=== PATIENT | male | born 1995 | race American Indian/Alaskan Native ===

== ENCOUNTER 2018-12-21 17:54 | Emergency (ER) | payer SELFPAY ==
[2018-12-21] MEDS ORDERED: NACL 0.9% 1000 ML 1,000 ML IV ONE (18:54)
[2018-12-21 19:36] LABS: Basophils # (Auto) 0.1 K/mm3 (0.0-0.1); Basophils % (Auto) 0.7 % (0.0-1.8); Hematocrit 48.8 % (35.5-45.6); Hemoglobin 16.1 gm/dl (11.8-15.2); Lymphocytes # (Auto) 0.8 K/mm3 (1.2-5.4); Lymphocytes % (Auto) 8.9 % (13.4-35.0); Mean Corpuscular HGB Conc 33 % (32-34); Mean Corpuscular Volume 88 fl (84-94); Monocytes # (Auto) 0.3 K/mm3 (0.0-0.8); Monocytes % (Auto) 3.4 % (0.0-7.3); Platelet Count 226 K/mm3 (140-440); Red Blood Count 5.53 M/mm3 (3.65-5.03); Red Cell Distribution Width 14.1 % (13.2-15.2)
[2018-12-21 19:55] LABS: Alanine Aminotransferase 21 units/L (7-56); Albumin 5.5 g/dL (3.9-5); BUN/Creatinine Ratio 10; Blood Urea Nitrogen 12 mg/dL (9-20); Calcium 10.1 mg/dL (8.4-10.2); Hemolysis Index 19
--- NOTE | 2018-12-21 20:28 | Emergency Department Report ---
ED General Adult HPI - General Chief complaint: Abdominal Pain Stated complaint: NAUSEA Time Seen by Provider: 12/21/18 20:16 Source: patient Mode of arrival: Ambulatory Limitations: No Limitations - History of Present Illness Initial comments: 23-year-old male with no past medical history presents with a complaint of abdominal pain for the past 2 days. Patient states he was treated at an outside hospital on December 19 initially had improvement but worsened. Patient states he had no medications he was discharged with. Patient denies any sick contacts or any fever. Patient states his last emesis was at 4 PM. Patient states currently he is able to drink sips of water. Patient denies any hematemesis. Patient states his last bowel movement was also 4:30 PM but denies any hematochezia. Patient denies any cough or shortness of breath. Patient denies any dysuria or hematuria. Patient states the abdominal pain is diffuse but does not radiate. - Related Data Previous Rx's Medication Instructions Recorded Last Taken Type Famotidine [Pepcid] 20 mg PO BID #60 tablet 12/21/18 Unknown Rx Ondansetron (Nf) [Zofran TAB] 4 mg PO Q8HR PRN #20 tablet 12/21/18 Unknown Rx traMADol [Ultram] 50 mg PO Q6HR PRN #20 tablet 12/21/18 Unknown Rx Allergies Allergy/AdvReac Type Severity Reaction Status Date / Time No Known Allergies Allergy Unverified 12/21/18 18:00 ED Review of Systems ROS: Stated complaint: NAUSEA Other details as noted in HPI Constitutional: denies: chills, fever Eyes: denies: eye pain, eye discharge, vision change ENT: denies: ear pain, throat pain Respiratory: denies: cough, shortness of breath, wheezing Cardiovascular: denies: chest pain, palpitations Endocrine: no symptoms reported Gastrointestinal: abdominal pain, nausea, vomiting Genitourinary: denies: urgency, dysuria Musculoskeletal: denies: back pain, joint swelling, arthralgia Skin: denies: rash, lesions Neurological: denies: headache, weakness, paresthesias Psychiatric: denies: anxiety, depression Hematological/Lymphatic: denies: easy bleeding, easy bruising ED Past Medical Hx - Past Medical History Previous Medical History?: No - Surgical History Past Surgical History?: No - Social History Smoking Status: Never Smoker Substance Use Type: Marijuana - Medications Home Medications: Home Medications Medication Instructions Recorded Confirmed Last Taken Type Famotidine [Pepcid] 20 mg PO BID #60 tablet 12/21/18 Unknown Rx Ondansetron (Nf) [Zofran TAB] 4 mg PO Q8HR PRN #20 tablet 12/21/18 Unknown Rx traMADol [Ultram] 50 mg PO Q6HR PRN #20 tablet 12/21/18 Unknown Rx ED Physical Exam - General Limitations: No Limitations General appearance: alert, other (awake; uncomfortable; mild distress) - Head Head exam: Present: atraumatic, normocephalic - Eye Eye exam: Present: normal appearance - ENT ENT exam: Present: mucous membranes dry - Neck Neck exam: Present: normal inspection - Respiratory Respiratory exam: Present: normal lung sounds bilaterally. Absent: respiratory distress - Cardiovascular Cardiovascular Exam: Present: regular rate, normal rhythm. Absent: systolic murmur, diastolic murmur, rubs, gallop - GI/Abdominal GI/Abdominal exam: Present: soft, tenderness (diffusely in abdomen ), normal bowel sounds. Absent: guarding, rebound - Rectal Rectal exam: Present: deferred - Extremities Exam Extremities exam: Present: normal inspection - Back Exam Back exam: Present: normal inspection - Neurological Exam Neurological exam: Present: alert, oriented X3 - Psychiatric Psychiatric exam: Present: normal affect, normal mood - Skin Skin exam: Present: warm, dry, intact, normal color. Absent: rash ED Course Vital Signs 12/21/18 18:00 Temperature 98.1 F Pulse Rate 76 Respiratory 18 Rate Blood Pressure 156/106 O2 Sat by Pulse 99 Oximetry ED Medical Decision Making - Lab Data Result diagrams: 12/21/18 19:18 12/21/18 19:18 - Medical Decision Making Patient received IV normal saline as well as 4 mg of morphine, 4 mg of Zofran and 20 mg IV Pepcid. Patient has resolution of pain and will be discharged to follow up with PCP as an outpatient. - Differential Diagnosis Pancreatitis; Cholelithiasis; Anemia; Electrolyte Abnormality Critical care attestation.: If time is entered above; I have spent that time in minutes in the direct care of this critically ill patient, excluding procedure time. ED Disposition Clinical Impression: Gastritis, Abdominal pain, Vomiting Disposition: - TO HOME OR SELFCARE Is pt being admited?: No Does the pt Need Aspirin: No Condition: Stable Instructions: Gastritis (ED), Acute Nausea and Vomiting (ED) Prescriptions: Famotidine [Pepcid] 20 mg PO BID #60 tablet Ondansetron (Nf) [Zofran TAB] 4 mg PO Q8HR PRN #20 tablet PRN Reason: vomiting traMADol [Ultram] 50 mg PO Q6HR PRN #20 tablet PRN Reason: Pain Referrals: JUSTIN SHELL MD [Primary Care Provider] - 3-5 Days Time of Disposition: 23:14 Print Language: ZIMBABWEAN
[2018-12-21] MEDS ORDERED: PEPCID IV ONE (21:03)
[2018-12-21] MEDS ORDERED: ZOFRAN IV ONE (21:03)
[2018-12-21] MEDS ORDERED: MORPHINE IV ONE (21:03)
--- NOTE | 2018-12-21 22:44 | Cat Scan Report ---
FINAL REPORT EXAM: CT ABDOMEN PELVIS WO CON HISTORY: Abdominal Pain TECHNIQUE: Helical CT scan through the abdomen and pelvis without contrast. Images are reconstructed in the sagittal and coronal planes. PRIORS: None. FINDINGS: Solid organ and bowel evaluation is limited without intravenous contrast. Bowel evaluation is limited without oral contrast. The lung bases are clear. The liver, gallbladder, pancreas, spleen and adrenal glands appear normal. The kidneys appear grossly normal. The pelvic organs appear grossly normal. There is a small amount of free pelvic fluid. The stomach appears grossly within normal limits. There are no abnormally dilated loops of bowel or acute inflammatory changes. A normal-appearing appe ndix is identified. The abdominal aorta has a normal diameter. The bones and subcutaneous soft tissues are unremarkable for age. IMPRESSION: 1. There is a small amount of free pelvic fluid, a nonspecific finding. 2. Otherwise, no acute findings in the abdomen/pelvis
[2018-12-21 23:37] VITALS: BP 120/89
== END 2018-12-22 00:01 | disposition home or self-care (01) ==
LOC: ED 17:54
DX: K52.9 Noninfective gastroenteritis and colitis, unspecified (principal); F12.10 Cannabis abuse, uncomplicated
CPT/HCPCS: 36415; 74176; 80053; 83690; 85025; 96361; 96374; 96375; 99284; J2270; J2405; J7030